=== PATIENT | female | born 1965 ===

== ENCOUNTER 2023-11-13 09:37 | Emergency (ER) | payer OTHER ==
[~2023-11-13] VITALS: Ht 167.6 cm; Wt 63.0 kg
[2023-11-13 09:49] VITALS: O2SAT 99
[2023-11-13 10:28] LABS: BASOPHILS % 0.5 % (0.0-2.0); EOSINOPHILS % 2.7 % (0.0-5.0); HEMATOCRIT. 34.1 % (36.0-48.0); HEMOGLOBIN. 11.4 g/dL (12.0-16.0); LYMPHOCYTES % 49.1 % (20.0-50.0); MEAN CORPUSCULAR HEMOGLOBIN 31.8 pg (28.0-32.0); MEAN CORPUSCULAR HGB CONC 33.6 g/dL (31.0-37.0); MEAN CORPUSCULAR VOLUME 94.6 fL (81.0-99.0); MEAN PLATELET VOLUME 9.4 fl (7.4-10.4); NEUTROPHILS % 37.7 % (40.0-76.0); PLATELET 181 x1000/uL (130-400); RED CELL DISTRIBUTION WIDTH 13.6 % (11.6-14.6); WHITE BLOOD COUNT 4.3 x1000/uL (4.5-11.0)
[2023-11-13 10:30] LABS: CHLORIDE 108 mEq/L (98-107); POTASSIUM 4.2 mEq/L (3.5-5.1); SODIUM 143 mEq/L (136-145)
[2023-11-13 10:31] LABS: CARBON DIOXIDE 29 mEq/L (21-32)
[2023-11-13 10:36] LABS: CREATININE 0.5 mg/dL (0.6-1.0); GLUCOSE 94 mg/dL (70-105)
[2023-11-13 10:38] LABS: ALANINE AMINOTRANSFERASE 30 IU/L (10-49); ALBUMIN 4.1 g/dL (3.2-4.8); ASPARTATE AMINOTRANSFERASE 35 IU/L (<34); BILIRUBIN DIRECT 0.2 mg/dL (<=3.0); BILIRUBIN TOTAL 0.5 mg/dL (0.1-1.0); PROTEIN TOTAL 6.2 g/dL (6.0-8.3)
[2023-11-13 10:40] LABS: UREA NITROGEN BLOOD < 5 mg/dL (9-23)
[2023-11-13] MEDS: ONDANSETRON 4MG ODT PO ONE (11:28)
[2023-11-13] MEDS: FAMOTIDINE 20MG TABLET PO ONE (11:28)
[2023-11-13] MEDS ORDERED: FAMO-135 MT (11:54)
[2023-11-13] MEDS ORDERED: ONDA4TAB50 MT (11:54)
[2023-11-13 12:36] LABS: CLARITY URINE CLEAR (CLEAR); COLOR URINE YELLOW (YELLOW); GLUCOSE URINE NEGATIVE (NEGATIVE); KETONES URINE NEGATIVE (NEGATIVE); LEUKOCYTE ESTERASE URINE 2+ (NEGATIVE); NITRITE URINE NEGATIVE (NEGATIVE); OCCULT BLOOD URINE 1+ (NEGATIVE); PROTEIN URINE TRACE (NEGATIVE); SPECIFIC GRAVITY URINE 1.017 (1.005-1.030); UROBILINOGEN URINE 0.2 E.U./dL (0.2-1.0)
[2023-11-13 13:02] LABS: MUCUS URINE TRACE /lpf (< = 2+); SQUAMOUS EPITHELIAL CELL URINE 1+ /lpf (RARE/1+)
[2023-11-13 13:03] LABS: BACTERIA URINE 2+
[2023-11-13 13:05] LABS: RBC URINE 0-2 /hpf (0-2)
[2023-11-13 13:17] VITALS: BP 124/78; PULSE 64; RESP 16; TEMP 97.9
== END 2023-11-13 13:42 | disposition home or self-care (01) ==
LOC: ER 09:37
DX: K52.9 Noninfective gastroenteritis and colitis, unspecified (principal); I10 Essential (primary) hypertension; Z20.822 Contact with and (suspected) exposure to COVID-19
CPT/HCPCS: 99283; 87426; 80076; 80048; 81003; 83690; 85025; 87804 ×2; 36415; Q0162